=== PATIENT | female | born 1965 | race Asian ===

== ENCOUNTER 2019-02-26 16:08 | Emergency (ER) | payer OTHER ==
[~2019-02-26] VITALS: Ht 149.9 cm; Wt 46.8 kg
[2019-02-26] MEDS ORDERED: ACET-2341 PO (16:34)
[2019-02-26] MEDS ORDERED: MUSCLE RELAXANT PO (16:34)
[2019-02-26] MEDS ORDERED: PAIN RELIEF PO (16:35)
[2019-02-26] MEDS ORDERED: KETOROLAC TROMETHAMINE 30 MG/ML VIAL IVP ONE (17:45)
[2019-02-26] MEDS ORDERED: MORPHINE SULFATE 2 MG/ML SYRINGE IVP ONE (17:45)
[2019-02-26 19:18] VITALS: BP 143/66
== END 2019-02-26 20:29 | disposition home or self-care (01) ==
LOC: EMS 16:09
DX: M54.5 Low back pain (principal); R20.0 Anesthesia of skin
CPT/HCPCS: 72148; 96374; 96375; 99284; J1885; J2270

== ENCOUNTER 2019-07-23 16:00 | Inpatient (IN) | payer OTHER ==
[~2019-07-23] VITALS: Ht 149.9 cm; Wt 54.0 kg
[~2019-07-23 16:00] MED LIST: MUSCLE RELAXANT PO; PAIN RELIEF PO
[2019-07-23] MEDS ORDERED: SODIUM CHLORIDE 0.9% 1,000 ML IV ONE ×2 (16:15→19:45)
[2019-07-23] MEDS ORDERED: ATOR10TA84 PO (16:15)
[2019-07-23] MEDS ORDERED: MECLIZINE HCL 25 MG TABLET PO ONE (16:15)
[2019-07-23] MEDS ORDERED: LOSA25TA41 PO (16:15)
[2019-07-23] MEDS ORDERED: MAG HYDROX/AL HYDROX/SIMETH 30 ML SUSP UDCUP PO ONE (16:30)
[2019-07-23] MEDS ORDERED: FAMOTIDINE 10 MG/ML 2 ML VIAL IVP ONE (16:30)
[2019-07-23 16:33] LABS: BASOPHILS % (AUTO) 0.4 % (0.0-2.0); EOSINOPHILS % (AUTO) 3.8 % (1.0-6.0); HEMATOCRIT 39.2 % (36-46); HEMOGLOBIN 13.6 g/dL (12.0-16.0); LYMPHOCYTES # (AUTO) 2.9 K/uL (1.0-4.8); LYMPHOCYTES % (AUTO) 42.4 % (22.0-44.0); MEAN CORPUSCULAR HEMOGLOBIN 31.4 pg (26.0-34.0); MEAN CORPUSCULAR HGB CONC 34.7 G/dL (31.0-37.0); MEAN CORPUSCULAR VOLUME 91 fL (80-100); MONOCYTES # (AUTO) 0.4 K/uL (0.1-1.0); MONOCYTES % (AUTO) 5.5 % (2.0-9.0); NEUTROPHILS # (AUTO) 3.2 K/uL (1.8-7.7); NEUTROPHILS % (AUTO) 47.9 % (40.0-70.0); PLATELET COUNT (AUTO) 304 K/uL (150-450); RED BLOOD CELL COUNT(AUTO) 4.33 MIL/uL (4.00-5.20); RED CELL DISTRIBUTION WIDTH 13.1 % (11.5-14.5)
[2019-07-23 16:44] LABS: ANION GAP 8 mmol/L (8-16); CARBON DIOXIDE 26 mmol/L (22-29); CHLORIDE 103 mmol/L (98-107); CREATININE 0.63 mg/dL (0.60-1.30); GLOMERULAR FILTR. RATE CALC > 60 mL/min (>60); GLUCOSE,RANDOM 116 mg/dL (70-110); POTASSIUM 3.3 mmol/L (3.5-5.1); SODIUM SERUM 137 mmol/L (136-145); UREA NITROGEN, BLOOD 11 mg/dL (7-18)
[2019-07-23 16:53] LABS: B-TYPE NATRIURETIC PEPTIDE 56 pg/mL (0-100)
[2019-07-23] MEDS ORDERED: SODIUM CHLORIDE 0.9% 100 ML ONE (16:56)
[2019-07-23] MEDS ORDERED: IOVERSOL 350 MG/ML 150 ML VIAL ONE (16:56)
[2019-07-23 16:59] LABS: ALANINE AMINOTRANSFERASE 26 U/L (12-78); ALBUMIN 3.9 g/dL (3.4-5.0); ALKALINE PHOSPHATASE 78 U/L (46-116); ASPARTATE AMINOTRANSFERASE 19 U/L (15-37); BILIRUBIN,TOTAL 0.5 mg/dL (0.1-1.0); HCG,QUANTITATIVE 2 mIU/mL (0-6); TOTAL PROTEIN, SERUM 7.6 g/dL (6.4-8.2)
[2019-07-23] MEDS ORDERED: POTASSIUM CHLORIDE 20 MEQ ER TABLET PO ONE (17:00)
[2019-07-23] MEDS ORDERED: DIAZEPAM 5 MG/ML 2 ML SYRINGE IVP ONE (19:00)
[2019-07-23 19:35] LABS: APPEARANCE,URINE CLEAR (CLEAR); BILIRUBIN,URINE NEGATIVE (NEGATIVE); GLUCOSE, URINE (UA) NEGATIVE (NEGATIVE); KETONES,URINE 15 mg/dL (NEGATIVE); LEUKOCYTE ESTERASE ,URINE NEGATIVE (NEGATIVE); NITRATE,URINE NEGATIVE (NEGATIVE); OCCULT BLOOD,URINE TRACE (NEGATIVE); PROTEIN,URINE NEGATIVE (NEGATIVE); UROBILINOGEN,URINE 0.2 mg/dL (<=1.0)
[2019-07-23 19:59] LABS: BACTERIA,URINE Rare /HPF (None Seen); SQUAMOUS EPITHELIAL CELL,UR Few /LPF (None Seen)
[2019-07-23 22:37] VITALS: BP 153/69
[2019-07-23] MEDS ORDERED: MORPHINE SULFATE 2 MG/ML SYRINGE IVP PRN (23:00)
[2019-07-23] MEDS ORDERED: MAGNESIUM HYDROXIDE SUSPENSION 30 ML UDCUP PO PRN (23:00)
[2019-07-23] MEDS ORDERED: HYDROCODONE/ACETAMINOPHEN 5-325 MG TABLET PO PRN (23:00)
[2019-07-23] MEDS ORDERED: ZOLPIDEM TARTRATE 5 MG TABLET PO PRN (23:00)
[2019-07-23] MEDS ORDERED: ONDANSETRON HCL 4 MG/2 ML VIAL IVP PRN (23:00)
[2019-07-23] MEDS ORDERED: ACETAMINOPHEN 325 MG TABLET PO PRN (23:00)
[2019-07-23] MEDS ORDERED: BISACODYL 10 MG RECTAL RECTAL SUPPOSITORY PR PRN (23:00)
[2019-07-24] VITALS (8 sets, daily range): BP systolic 116–145; BP diastolic 69–85
[2019-07-24] MEDS ORDERED: PANTOPRAZOLE SODIUM 40 MG DR TABLET PO SCH (09:00)
[2019-07-24] MEDS ORDERED: GADOBUTROL 1 MMOL/ML 10 ML VIAL IVP ONE (09:22)
[2019-07-24] MEDS: MECLIZINE HCL 25 MG TABLET PO SCH ×3 (10:10→20:47)
[2019-07-24] MEDS: HEPARIN SODIUM,PORCINE 5,000 UNITS/ML VIAL SQ SCH ×3 (10:10→16:46)
[2019-07-24] MEDS: DOCUSATE SODIUM 100 MG CAPSULE PO SCH ×2 (10:10→21:00)
[2019-07-24] MEDS: LOSARTAN POTASSIUM 25 MG TABLET PO SCH (10:11)
[2019-07-24] MEDS: ATORVASTATIN CALCIUM 10 MG TABLET PO SCH (10:11)
[2019-07-24] MEDS: PANTOPRAZOLE SODIUM 40 MG DR TABLET PO SCH (20:47)
[2019-07-25] MEDS: HEPARIN SODIUM,PORCINE 5,000 UNITS/ML VIAL SQ SCH ×2 (02:03→08:26)
[2019-07-25 05:17] VITALS: BP 145/77
[2019-07-25 08:07] VITALS: BP 135/74
[2019-07-25] MEDS: PANTOPRAZOLE SODIUM 40 MG DR TABLET PO SCH (08:26)
[2019-07-25] MEDS: DOCUSATE SODIUM 100 MG CAPSULE PO SCH (08:26)
[2019-07-25] MEDS: ATORVASTATIN CALCIUM 10 MG TABLET PO SCH (08:26)
[2019-07-25] MEDS: MECLIZINE HCL 25 MG TABLET PO SCH ×2 (08:26→15:16)
[2019-07-25] MEDS: LOSARTAN POTASSIUM 25 MG TABLET PO SCH (08:27)
[2019-07-25] MEDS ORDERED: MECL-111 PO (11:28)
[2019-07-25] MEDS ORDERED: ONDA-104 PO (11:29)
[2019-07-25 12:13] VITALS: BP 139/75
== END 2019-07-25 15:21 | disposition home or self-care (01) | DRG 149 ==
LOC: EMS 16:01 → 5S 20:00 → 4E 07-24 11:20
PROVIDERS: ADMIT Internal Medicine; ATTEND Internal Medicine
DX: H81.10 Benign paroxysmal vertigo, unspecified ear (principal); I10 Essential (primary) hypertension; E78.5 Hyperlipidemia, unspecified; G43.009 Migraine without aura, not intractable, without status migrainosus; E87.6 Hypokalemia; E78.00 Pure hypercholesterolemia, unspecified; Z79.899 Other long term (current) drug therapy
CPT/HCPCS: 70450; 70496; 70544; 70551; 70553; 74177; 93005; 96374; A9585; G0378; J1644; J2405; J3490; J7030; J7050